=== PATIENT | female | born 2000 | race African-American/Black ===

== ENCOUNTER 2019-12-05 00:39 | Emergency (ER) | payer OTHER ==
[~2019-12-05] VITALS: Ht 167.6 cm; Wt 89.6 kg
[2019-12-05 01:37] LABS: ABSOLUTE EOSINOPHILS 0.1 thou/uL (0.0-0.7); ABSOLUTE LYMPHOCYTES 1.7 thou/uL (0.8-5.3); ABSOLUTE MONOCYTES 0.2 thou/uL (0.0-1.2); ABSOLUTE NEUTROPHILS 2.8 thou/uL (1.6-8.1); BASOPHILS 0.6 %; EOSINOPHILS 1.3 %; HEMATOCRIT 35.9 % (37.0-47.0); HEMOGLOBIN 12.3 gm/dL (12.0-15.0); MCH 29.7 pg (26.0-34.0); MCHC 34.4 g/dL (28.0-37.0); MCV 86.4 fL (80.0-100.0); MONOCYTES 4.8 %; MPV 8.6 fl. (7.2-11.1); NUCLEATED RBCS 0 /100WBC; PLATELET COUNT* 175 thou/uL (150-400); POLYS 57.3 %; RBC 4.16 mil/uL (4.20-5.00); RDW-CV 12.2 % (10.5-14.5); WBC 4.8 thou/uL (4.0-11.0)
[2019-12-05 01:43] LABS: CALCIUM 8.2 mg/dL (8.5-10.1)
[2019-12-05 01:48] LABS: POTASSIUM 2.4 mmol/L (3.5-5.1)
[2019-12-05 02:07] LABS: ALBUMIN 3.9 g/dL (3.4-5.0); TOTAL BILIRUBIN 0.2 mg/dL (<0.1-1.0); TOTAL PROTEIN 6.8 g/dL (6.4-8.2)
[2019-12-05 02:21] VITALS: BP 97/56
[2019-12-05] MEDS ORDERED: K-TAB ER20 MEQ PO (03:15)
== END 2019-12-05 03:32 | disposition home or self-care (01) ==
LOC: M.ERS 00:39
PROVIDERS: Emergency Medicine Emergency Medical Services
DX: F10.129 Alcohol abuse with intoxication, unspecified (principal); Y90.6 Blood alcohol level of 120-199 mg/100 ml; E87.6 Hypokalemia; R11.2 Nausea with vomiting, unspecified